=== PATIENT | female | born 2005 | race Caucasian/White ===

== ENCOUNTER 2025-04-02 02:32 | Emergency (ER) | payer MEDICAID, OTHER ==
[2025-04-02] MEDS ORDERED: Ibuprofen 200 MG TAB ONE (03:12)
[2025-04-02] MEDS ORDERED: HYDROcodone/Acetaminophen 5/325 mg Tablet ONE (03:59)
[2025-04-02] MEDS ORDERED: predniSONE 20 MG TAB ONE (03:59)
== END 2025-04-02 04:35 | disposition home or self-care (01) ==
LOC: BURERS 02:32
DX: S16.1XXA Strain of muscle, fascia and tendon at neck level, initial encounter (principal); X50.1XXA Overexertion from prolonged static or awkward postures, initial encounter
CPT/HCPCS: 72125; J7512